=== PATIENT | male | born 1970 | race Caucasian/White ===

== ENCOUNTER → 2018-02-25 | Outpatient (CLI) | payer BC ==
--- NOTE | 2018-02-25 20:28 | XR ---
EXAMINATION TYPE: XR pelvis AP view DATE OF EXAM: 02/25/2018 COMPARISON: NONE HISTORY: Pain TECHNIQUE: Single view FINDINGS: Pelvic ring is intact. Proximal femurs and hip joints appear normal. Sacroiliac joints appe ar normal. IMPRESSION: Normal pelvis
--- NOTE | 2018-02-25 20:29 | XR ---
EXAMINATION TYPE: XR ankle complete bilateral DATE OF EXAM: 02/25/2018 COMPARISON: NONE HISTORY: Pain TECHNIQUE: 3 views each ankle FINDINGS: Joint spaces appear normal. There are small bilateral plantar calcaneal spurs. I see no fra cture nor dislocation. IMPRESSION: Minimal calcaneal spurring. Otherwise negative exam.
--- NOTE | 2018-02-25 20:29 | XR ---
EXAMINATION TYPE: XR foot complete bilateral DATE OF EXAM: 02/25/2018 COMPARISON: NONE HISTORY: Pain TECHNIQUE: 3 views each foot FINDINGS: Metatarsals appear intact. I see no fracture nor dislocation. There are no erosions. There are small plantar calcaneal spurs. IMPRESSION: Mild spurring. No evidence of inflammatory arthritis. No fracture.
--- NOTE | 2018-02-25 20:30 | XR ---
EXAMINATION TYPE: XR cervical spine comp DATE OF EXAM: 02/25/2018 COMPARISON: NONE HISTORY: Neck pain TECHNIQUE: 5 views FINDINGS: The cervical vertebra have normal spacing and alignment. Posterior elements are intact. Kodi antoaxial facet joint is normal. There are no cervical ribs. Neural foramina appear normal. IMPRESSION: Negative cervical spine exam.
== END | disposition home or self-care (01) ==
LOC: RADXRMAIN 19:54
PROVIDERS: ATTEND Physician Assistant Medical
DX: M25.00 Hemarthrosis, unspecified joint (principal); M77.31 Calcaneal spur, right foot; M77.32 Calcaneal spur, left foot; M13.0 Polyarthritis, unspecified
CPT/HCPCS: 72050; 72170

== ENCOUNTER → 2018-02-25 | Outpatient (CLI) | payer BC ==
--- NOTE | 2018-02-28 15:44 | MR ---
EXAMINATION TYPE: MR lumbar spine wo con DATE OF EXAM: 02/25/2018 COMPARISON: None HISTORY: LBP, LLE radic, injured back 1-2 mos ago TECHNIQUE: Multiplanar, multisequence images of the lumbar spine were acquired. L1-L2: Normal disc appearance without desiccation. No herniation, protrusion or disc bulging. No ca nal stenosis is present. Foramina are patent bilaterally. L2-L3: Normal disc appearance without desiccation. No herniation, protrusion or disc bulging. No ca nal stenosis is present. Foramina are patent bilaterally. L3-L4: Small central posterior disc bulge causes anterior mass effect on the thecal sac, only minimal central stenosis. No significant foraminal encroachment. Facet arthropathy changes present with hype rtrophic change of the ligamentum flavum causes posterior lateral mass effect on the thecal sac. L4-L5: Left posterior paracentral disc herniation causes anterior paracentral mass effect on the thec al sac. Only minimal central canal stenosis. No significant foraminal encroachment. There is facet ar thropathy with hypertrophic change of the ligamentum flavum causing some posterior lateral mass effec t on the thecal sac greater on the right. L5-S1: Broad-based disc bulge may contact the proximal S1 nerve roots, anterior thecal sac, no signif icant central stenosis or foraminal encroachment. Lumbar segments are intact. No paraspinal masses are identified. Conus medullaris has a normal appe arance. Lumbar vertebral bodies show preserved height and alignment. There is multilevel spondylosis with endplate discogenic marrow signal change. Loss of disc height signal present L3-4, L4-5 and L5-S 1. There is a levoscoliosis centered at the lower lumbar spine. Parapelvic cysts are noted within the left kidney. IMPRESSION: Degenerative disc disease, spinal curvature, facet arthropathy.
== END | disposition home or self-care (01) ==
LOC: RADMRIMAIN 19:29
PROVIDERS: ATTEND Family Medicine
DX: M51.36 Other intervertebral disc degeneration, lumbar region (principal); M46.96 Unspecified inflammatory spondylopathy, lumbar region; M43.8X6 Other specified deforming dorsopathies, lumbar region
CPT/HCPCS: 72148

== ENCOUNTER 2023-03-10 19:31 | Emergency (ER) | payer BC ==
--- NOTE | 2023-03-10 20:13 | ED ---
Wound/Laceration HPI - General Chief Complaint: Wound/Laceration Stated Complaint: bilateral leg laceration-saw accident Time Seen by Provider: 03/10/23 20:08 Source: patient, RN notes reviewed Mode of arrival: ambulatory Limitations: no limitations - History of Present Illness Initial Comments: This is a 52 year old male who presents to the emergency department for lacerations to both legs. States that he was using a saw, and he went to grab it when a piece of steel shot out and cut him on both legs. The lacerations are on the inside of both thighs. This occurred around 6-6:30pm this evening. His tetanus vaccine is up-to-date. This pain is controlled at this time. He does state that this was a fairly dirty injury. - Related Data Previous Rx's Medication Instructions Recorded Cephalexin [Keflex] 500 mg PO Q8HR 5 Days #15 cap 03/10/23 Allergies Allergy/AdvReac Type Severity Reaction Status Date / Time No Known Allergies Allergy Verified 03/10/23 20:09 Review of Systems ROS Statement: Those systems with pertinent positive or pertinent negative responses have been documented in the HPI. ROS Other: All systems not noted in ROS Statement are negative. Past Medical History Past Medical History: Skin Disorder Additional Past Medical History / Comment(s): plantar fascitis, eczema legs and elbows History of Any Multi-Drug Resistant Organisms: None Reported Past Surgical History: Appendectomy Past Anesthesia/Blood Transfusion Reactions: Postoperative Nausea & Vomiting (PONV) Additional Past Anesthesia/Blood Transfusion Reaction / Comment(s): no blood transfusion Smoking Status: Never smoker General Exam - General Exam Comments Initial Comments: Visual Physical Exam Vital signs reviewed General: Well-appearing, nontoxic, no acute distress. Head: Normocephalic, atraumatic Eyes: PERRLA, EOMI ENT: Airway patent Chest: Nonlabored breathing Skin: No visual rash, normal skin tone Neuro: Alert and oriented 3 Musculoskeletal: No gross abnormalities I performed the QuickNote portion of this chart. Signed Prabha Murray PA-C. Limitations: no limitations General appearance: alert, in no apparent distress Head exam: Present: atraumatic, normocephalic, normal inspection Respiratory exam: Present: normal lung sounds bilaterally. Absent: respiratory distress, wheezes, rales, rhonchi, stridor Cardiovascular Exam: Present: regular rate, normal rhythm, normal heart sounds. Absent: systolic murmur, diastolic murmur, rubs, gallop, clicks Neurological exam: Present: alert, oriented X3, CN II-XII intact Psychiatric exam: Present: normal affect, normal mood Skin exam: Present: other (Multiple superficial lacerations to the medial aspect of his bilateral thighs with a 4 cm deeper laceration to both thighs. Minor active bleeding.) Course Vital Signs 03/10/23 03/10/23 20:09 22:18 Temperature 98.2 F 98.3 F Pulse Rate 64 63 Respiratory 18 18 Rate Blood Pressure 133/81 123/84 O2 Sat by Pulse 98 99 Oximetry Procedures - Laceration Laceration #1 Consent Obtained: verbal consent Indication: laceration Site: lower extremity Size (cm): 4 Description: linear Depth: simple, single layer Anesthetic Used: lidocaine 1% Anesthesia Technique: local infiltration Amount (mls): 3 Pre-repair: wound explored, irrigated extensively Type of Sutures: nylon Size of Sutures: 4-0 Number of Sutures: 5 Technique: simple, interrupted Laceration #2 Consent Obtained: verbal consent Indication: laceration Site: lower extremity Size (cm): 4 Description: linear Depth: simple, single layer Anesthetic Used: lidocaine 1% Anesthesia Technique: local infiltration Amount (mls): 4 Pre-repair: wound explored, irrigated extensively Type of Sutures: nylon Size of Sutures: 4-0 Number of Sutures: 5 Technique: simple, interrupted Medical Decision Making - Medical Decision Making This is a 52-year-old male who presents to the emergency department for a laceration to the bilateral lower extremities. Was pt. sent in by a medical professional or institution? @ -No Did you speak to anyone other than the patient for history? @ -No Did you review nursing and triage notes? @ -Yes, and I agree, it is accurate with regards to the patient's symptoms. Were old charts reviewed? @ -No Differential Diagnosis? @ -Not applicable EKG interpreted by me (3pts min.)? @ -Not obtained X-rays interpreted by me (1pt min.)? @ -Not obtained CT interpreted by me (1pt min.)? @ -Not obtained U/S interpreted by me (1pt. min.)? @ -Not obtained What testing was considered but not performed? (CT, X-rays, U/S, labs)? Why? @ -None What meds were considered but not given? Why? @ -None Did you discuss the management of the patient with other professionals? @ -No Did you reconcile home meds? @ -No Was smoking cessation discussed for >3mins.? @ -No Was critical care preformed (if so, how long)? @ -No Were there social determinants of health that impacted care today? How? (Homelessness, low income, unemployed, alcoholism, drug addiction, transportation, low edu. Level, literacy, decrease access to med. care, skilled nursing, rehab)? @ -No Was there de-escalation of care discussed even if they declined? (Discuss DNR or withdrawal of care, Hospice)? @ -No What co-morbidities impacted this encounter? (DM, HTN, Smoking, COPD, CAD, Cancer, CVA, Hep., AIDS, mental health diagnosis, sleep apnea, morbid obesity)? @ -None Was patient admitted / discharged? @ -Discharged. He had multiple superficial lacerations to both lower extremities with 1 deeper laceration to both legs. The deeper lacerations were repaired with sutures. His tetanus vaccine is already up-to-date. Given that this was a fairly dirty injury, he was given a prescription for a 5 day course of Keflex for infectious prophylaxis. The wounds were however very thoroughly irrigated. Advised ibuprofen and Tylenol as needed for pain relief. He is also instructed to return in 7-10 days for suture removal. Undiagnosed new problem with uncertain prognosis? @ -None Drug Therapy requiring intensive monitoring for toxicity (Heparin, Nitro, Insulin, Cardizem)? @ -None Were any procedures done? @ -Laceration repair with sutures Diagnosis/symptom? @ -Laceration Acute, or Chronic, or Acute on Chronic? @ -Acute Uncomplicated (without systemic symptoms) or Complicated (systemic symptoms)? @ -Uncomplicated Side effects of treatment? @ -None Exacerbation, Progression, or Severe Exacerbation] @ -Not applicable Poses a threat to life or bodily function? @ -No Return precautions reviewed in depth, the patient is instructed to return to the emergency department with any new, worsening, or concerning symptoms. Patient verbalized understanding. This case was discussed in detail with the attending ED physician, Dr. Jordan. Presentation, findings, and treatment plan discussed in detail as well. Disposition Clinical Impression: Laceration Disposition: HOME SELF-CARE Instructions (If sedation given, give patient instructions): Care For Your Stitches (ED) Additional Instructions: Return to the emergency department with any new, worsening, or concerning symptoms and in 7-10 days for removal of the stitches. Take the antibiotic as prescribed for 5 days. Alternate with ibuprofen and Tylenol as needed for pain relief. Follow up with your primary care provider in 1-2 days. Prescriptions: Cephalexin [Keflex] 500 mg PO Q8HR 5 Days #15 cap Is patient prescribed a controlled substance at d/c from ED?: No Referrals: John Bernal MD [Primary Care Provider] - 1-2 days
[2023-03-10 20:16] VITALS: RESP 18
[2023-03-10] MEDS ORDERED: LIDOCAINE 1% INJ 10MG/ML (20 ML MDV) SQ ONE (21:59)
[2023-03-10 22:20] VITALS: BP 123/84; PULSE 63; TEMP 98.3
[2023-03-10] MEDS ORDERED: CEPHALEXIN 500MG STARTER PACK 4 CAP BTL PO STA (22:39)
== END 2023-03-10 23:08 | disposition home or self-care (01) ==
LOC: EC 19:31
DX: S71.112A Laceration without foreign body, left thigh, initial encounter (principal); S71.111A Laceration without foreign body, right thigh, initial encounter; W26.8XXA Contact with other sharp object(s), not elsewhere classified, initial encounter
CPT/HCPCS: 12004; 99283; J2001